=== PATIENT | female | born 1980 | race Caucasian/White ===

== ENCOUNTER 2020-04-06 09:40 | Outpatient (REF) | payer OTHER, SELFPAY ==
[2020-04-06 09:58] LABS: COVID-19 Test Negative (Negative)
== END 2020-04-06 09:41 | disposition home or self-care (01) ==
LOC: HO.EMPCOV 09:40
PROVIDERS: Visit Provider Internal Medicine
DX: Z20.822 Contact with and (suspected) exposure to COVID-19 (principal)
CPT/HCPCS: 36415; 87635; C9803

== ENCOUNTER 2020-04-06 10:19 | Emergency (ER) | payer OTHER, SELFPAY ==
--- NOTE | 2020-04-06 11:21 | XR_ITS ---
EXAMINATION: XR CHEST CLINICAL INFORMATION: Chest pain. COMPARISON: Chest done on 04/02/2013. TECHNIQUE: 2 views of the chest were obtained. FINDINGS: No significant abnormality is noted involving the heart, lungs, mediastinum, bony thorax or soft tissues. XR/XR chest 2V IMPRESSION: Unremarkable examination. No significant change since 04/02/2013.
[2020-04-06 11:49] VITALS: BP 138/64; PULSE 75; RESP 16; TEMP 36.8; O2SAT 100
== END 2020-04-06 13:53 | disposition left against medical advice (07) ==
PROVIDERS: Emergency Provider Emergency Medicine
DX: R07.89 Other chest pain (principal)
CPT/HCPCS: 71046; 99282; 99283